=== PATIENT | female | born 1930 | race Caucasian/White ===

== ENCOUNTER 2016-09-29 23:46 | Inpatient (IN) ==
--- NOTE | 2016-09-30 00:05 | Emergency Department Report ---
SOB HPI - General Chief Complaint: Shortness of Breath/Dyspnea Stated Complaint: Dyspnea Time Seen by Provider: 09/30/16 00:02 - History of Present Illness 86-year-old female presents with acute shortness of breath. Patient has a history of amyloidosis and has occasional episodes of hypoxemia. She felt fine yesterday, today however began to feel short of breath this afternoon. The time EMS arrived she was coping for air although her O2 sats were acceptable. She was breathing greater than 40 times per minute, EMS placed her on a nonrebreather and helped her calm down and she slowed her breathing to 28. They were unable to pull her off the nonrebreather and therefore brought her into the ED for evaluation. She has had steroids before and they have helped. - Related Data Home Medications Medication Instructions Recorded Confirmed Ascorbic Acid [Vitamin C] 1,000 mg PO DAILY #0 06/17/14 Fish Oil/Dha/Epa [Fish Oil 1,200 1,200 mg PO DAILY #0 06/17/14 mg Fish Oil] Fluticasone/Salmeterol [Advair 1 puff ORAL INH RTBID #0 08/29/14 500-50 Diskus] Potassium Chloride 20 meq PO DAILY #0 08/29/14 Acetaminophen [Acetaminophen Extra 1,000 mg PO Q8H PRN #0 06/02/15 Strength] Aspirin [Aspirin EC] 81 mg PO DAILY #0 07/22/15 Furosemide 40 mg PO DAILY #0 11/03/15 Multivitamin [Multi-Day Vitamins] 1 tab PO DAILY #0 11/03/15 Albuterol Sulfate 1 vial INH QID PRN #0 05/14/16 Calcium Carbonate [Calcium] 500 mg PO QD #0 06/07/16 Docusate Sodium 1 cap PO DAILY #0 06/07/16 Previous Rx's Medication Instructions Recorded Ferrous Sulfate 324 mg PO BIDWM 30 Days 06/16/16 Ipratropium/Albuterol Sulfate 3 ml AEROSOL RTQID 30 Days 06/16/16 [Iprat-Albut 0.5-3(2.5) mg/3 ml] PredniSONE [Deltasone] 40 mg PO WB 14 Days 06/16/16 Sulfamethoxazole/Trimethoprim 1 tab PO BID 5 Days 06/16/16 [Sulfamethoxazole-Tmp Ss Tablet] dilTIAZem HCl [Diltiazem 12Hr ER] 90 mg PO BID 30 Days 06/16/16 Allergies Allergy/AdvReac Type Severity Reaction Status Date / Time azithromycin Allergy Unknown Rash Verified 09/30/16 04:18 ciprofloxacin Allergy Unknown Rash Unverified 10/03/16 10:44 oxycodone Allergy Unknown Unverified 10/03/16 10:44 Review of Systems All systems: reviewed and negative except as stated Respiratory: Reports: as per HPI Musculoskeletal: Reports: as per HPI Psychiatric: Reports: as per HPI PFSH Patient Stated Medical History Cataracts Yes Other Cardiology Yes: A-FIB Chronic Obstructive Pulmonary Yes Disease (COPD) Other GI Yes: SCARED BOWEL Hx Kidney Stones Yes Other Yes: ONE KIDNEY L Anemia Yes Osteoarthritis Yes Chemotherapy Yes Substance use type: does not use Physical Exam - Normal Exams: Head:: Normocephalic without trauma Chest/Respirations:: Clear all strauss (, surprisingly. No crackles or wheezes are heard despite patient's respiratory distress.) Cardiovascular:: Regular rate and rhythm, without murmur or gallop, Pulses 2+ all extremities, capillary refill, <2 seconds all extremities Abdomen:: Bowel sounds positive, soft, non-tender, non-distended, no hepatosplenomegaly, masses or bruits noted Neurological:: Patient is alert, and oriented, cranial nerves, motor/sensory/ cerebellar, exams w/o gross deficits, to observation Psychiatric:: Patient exhibits, appropriate attention, emotion and affect Course Vital Signs Temperature 98.2 F 09/29/16 23:50 Pulse Rate 100 09/29/16 23:50 Respiratory Rate 28 H 09/29/16 23:50 Blood Pressure 136/74 09/29/16 23:50 Pulse Oximetry 99 09/29/16 23:50 Temperature 96.8 F 10/03/16 07:42 Pulse Rate 105 H 10/03/16 08:00 Respiratory Rate 20 10/03/16 10:13 Blood Pressure 135/69 10/03/16 07:42 Pulse Oximetry 96 10/03/16 10:13 Shortness of Breath/Dyspnea - Lab Data Result diagrams: 10/02/16 04:15 10/02/16 04:15 Lab Results 09/30/16 09/30/16 09/30/16 Range/Units 00:26 00:27 00:27 WBC 12.2 H (4.5-11.0) T/MM3 RBC 2.54 L (4.00-5.20) M/MM3 Hgb 7.1 L (12-16) GM/DL Hct 23.5 L (36-46) % MCV 92.5 (80-100) UM3 MCH 28.0 (26-34) UUG MCHC 30.2 L (31-37) GM/DL RDW Std Deviation 49.9 (36.9-50.2) FL Plt Count 439 H (130-400) T/MM3 MPV 9.8 (9.4-12.4) UM3 Immature Gran % (Auto) 0.2 (0.0-0.5) % Neut % (Auto) 80.8 H (33-66) % Lymph % (Auto) 9.2 L (23-45) % [place] % (Auto) 9.1 H (0-9.0) % Eos % (Auto) 0.4 (0-4) % Baso % (Auto) 0.3 (0-2) % Neut # 9.9 H (1.8-7.7) T/MM3 Lymph # 1.1 (1-4.8) T/MM3 [place] # 1.1 H (0-0.8) T/MM3 Eos # 0.1 (0-0.5) T/MM3 Baso # 0.0 (0-0.2) T/MM3 Abs Immat Gran (auto) 0.03 (0.00-0.03) T/MM3 INR 1.02 (0.99-1.21) D-Dimer 227 (0-230) NG/ML Turbidity 20 (0-20) Sodium 145 H (134-144) MEQ/L Potassium 2.9 L* (3.6-5) MEQ/L Chloride 99 (98-107) MEQ/L Carbon Dioxide 29 (22-30) MEQ/L Anion Gap 17 H (5-15) MEQ/L BUN 37.0 H (7-17) MG/DL Creatinine 2.2 H (0.7-1.2) MG/DL GFR Calculation 21 BUN/Creatinine Ratio 17 (6-26) RATIO Glucose 118 H (65-110) MG/DL Calculated Osmolality 289 H (261-280) MOSM/KG Calcium 8.7 (8.4-10.2) MG/DL Total Bilirubin 0.50 (0.20-1.30) MG/DL Icterus Index 2 (0-7) AST 19 (14-36) U/L ALT 32 (9-52) U/L Alkaline Phosphatase 78 (38-126) U/L Troponin I 0.021 (0-0.12) ng/ml B-Natriuretic Peptide 3010 H (0-175) pg/mL Total Protein 6.2 L (6.3-8.2) G/DL Albumin 3.7 (3.5-5.0) G/DL Globulin 2.5 (2.4-3.6) G/DL Albumin/Globulin Ratio 1.5 (1.1-2.2) RATIO Specimen Hemolysis 15 (0-25) Disposition Clinical Impression: Acute exacerbation of chronic obstructive airways disease [place] [facility] [place] Condition: Improved - Seen By: physician
[2016-09-30] MEDS ORDERED: METHYLPREDNISOLONE SOD SUCC 125mg/2ml INJECTION IVP ONE (00:07)
[2016-09-30] MEDS ORDERED: IPRATROPIUM/ALBUTEROL 2.5mg-0.5mg/3ml NEB IH ONE (00:07)
[2016-09-30] MEDS ORDERED: OXYMETAZOLINE 0.05% NASAL SPRAY 15ml EA NOSTRIL ONE (01:07)
[2016-09-30] MEDS ORDERED: POTASSIUM CHLORIDE INJ 40 MEQ in NS 1,000 ML IV SCH (01:43)
[2016-09-30] MEDS ORDERED: FUROSEMIDE 40 MG TABLET PO ONE (02:36)
--- NOTE | 2016-09-30 03:38 | History & Physical Report ---
History of Present Illness Date: Chief complaint: Dyspnea HPI: Patient is an 86-year-old female who presents to the ER this evening with acute onset of dyspnea and hypoxemia. She was found by EMS responders to be acutely tachypneic, although her oxygen saturation upon EMS arrival at the house was reported to be 100%. She was noted to be breathing 40 times per minute. She was placed on a non-rebreather mask and brought to the ER. She is presently now down to 5 L of nasal cannula oxygen. She has a known history of sarcoidosis, and review of records reveals she was recently discharged from this facility in June of this year with an acute exacerbation of her pulmonary sarcoidosis and COPD. She has been given a breathing treatment tonight, and some steroids. A BNP was 3000, so she was also given Lasix in the ER. She is chronically on oral Lasix at home. A d-dimer was negative. Potassium was slightly depressed as well. It appears that she is chronically on nocturnal oxygen. Shes now being placed under full admission status this morning for treatment of her acute exacerbation of COPD and pulmonary sarcoidosis. Review of Systems All systems: reviewed and no additional remarkable complaints except as stated ( as mentioned in HPI) PFSH Patient Stated Medical History Cataracts Yes Other Cardiology Yes: A-FIB Chronic Obstructive Pulmonary Yes Disease (COPD) Other GI Yes: SCARED BOWEL Hx Kidney Stones Yes Other Yes: ONE KIDNEY L Anemia Yes Osteoarthritis Yes Chemotherapy Yes Family History: Non contributory Smoking status: Never smoker Medications Home Medications Medication Instructions Recorded Confirmed Type Ascorbic Acid [Vitamin C] 1,000 mg PO DAILY #0 06/17/14 History Fish Oil/Dha/Epa [Fish Oil 1,200 1,200 mg PO DAILY #0 06/17/14 History mg Fish Oil] Fluticasone/Salmeterol [Advair 1 puff ORAL INH RTBID #0 08/29/14 History 500-50 Diskus] Potassium Chloride 20 meq PO DAILY #0 08/29/14 History Acetaminophen [Acetaminophen Extra 1,000 mg PO Q8H PRN #0 06/02/15 History Strength] Aspirin [Aspirin EC] 81 mg PO DAILY #0 07/22/15 History Furosemide 40 mg PO DAILY #0 11/03/15 History Multivitamin [Multi-Day Vitamins] 1 tab PO DAILY #0 11/03/15 History Albuterol Sulfate 1 vial INH QID PRN #0 05/14/16 History Calcium Carbonate [Calcium] 500 mg PO QD #0 06/07/16 History Docusate Sodium 1 cap PO DAILY #0 06/07/16 History Allergies Allergy/AdvReac Type Severity Reaction Status Date / Time azithromycin Allergy Unknown Verified 09/30/16 00:00 ciprofloxacin Allergy Unknown Unverified 09/30/16 00:00 oxycodone Allergy Unknown Unverified 09/30/16 00:00 oxycodone HCl AdvReac Unknown Uncoded 09/30/16 00:00 Oxycodone Terephthalate AdvReac Unknown Uncoded 09/30/16 00:00 Exam Vital Signs: Temp Pulse Resp BP Pulse Ox 98.2 F 91 28 H 136/74 99 09/29/16 23:50 09/30/16 00:19 09/29/16 23:50 09/29/16 23:50 09/29/16 23:50 Height: 1.68 m Weight: 71 kg - Constitutional Present: mild distress, obese - Routine HEENT Exam Head: Present: normocephalic, atraumatic - Routine Neck Exam Present: supple - Routine Respiratory Exam Present: rhonchi - Routine Cardiovascular Exam Present: RRR, S1, S2 - Routine Abdominal Exam Present: soft, non tender - Routine Extremities Exam Absent: edema - Routine Neurological Exam Present: alert, oriented X3 Results - Labs CBC & Chem 7: 09/30/16 00:27 09/30/16 00:27 Labs: Short CBC 09/30/16 Range/Units 00:27 WBC 12.2 H (4.5-11.0) T/MM3 Hgb 7.1 L (12-16) GM/DL Hct 23.5 L (36-46) % Plt Count 439 H (130-400) T/MM3 BMP 09/30/16 00:27 Sodium 145 H Potassium 2.9 L* Chloride 99 Carbon Dioxide 29 BUN 37.0 H Creatinine 2.2 H Glucose 118 H Calcium 8.7 Cardiac Enzymes 09/30/16 Range/Units 00:27 Troponin I 0.021 (0-0.12) ng/ml Liver Function 09/30/16 Range/Units 00:27 Total Bilirubin 0.50 (0.20-1.30) MG/DL AST 19 (14-36) U/L ALT 32 (9-52) U/L Alkaline Phosphatase 78 (38-126) U/L Albumin 3.7 (3.5-5.0) G/DL Assessment and Plan DVT Prophylaxis: SCD's Assessment and Plan: Assessment 1. Acute hypoxemic respiratory failure in the setting of chronic pulmonary Sarcoidosis and COPD with presumptive acute exacerbation-present on admit 2. Chronic kidney disease stage IV-at apparent baseline 3. Paroxysmal atrial fibrillation with presently controlled ventricular rate 4. 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 Will wean oxygen as tolerated. Plan to continue systemic IV corticosteroids, and nebulized bronchodilator therapy. I will initiate oral doxycycline for antibiotic coverage. Plan to continue home diuretics, and will need to replace potassium. Follow up labs will be ordered for noon today. Plan to continue other home medications, after reconciliation is complete. SCDs for DVT prophylaxis. Sepsis Assessment - Focused Exam Vital Signs Temp Pulse Resp BP Pulse Ox 09/30/16 00:19 91 09/29/16 23:50 98.2 F 100 28 H 136/74 99 Hospital Course Summary Disclaimer: The visit summary below is not to be considered part of the above Progress Note.
[2016-09-30] MEDS ORDERED: ALBUTEROL 2.5mg/3ml (0.083%) NEB IH PRN (04:10)
[2016-09-30] MEDS ORDERED: ACETAMINOPHEN 325 MG TABLET PO PRN (04:10)
[2016-09-30] MEDS: CALCIUM CARBONATE 500 MG TABLET PO SCH (05:53)
[2016-09-30] MEDS ORDERED: FERROUS SULFATE 324 MG TABLET PO SCH (08:00)
--- NOTE | 2016-09-30 08:07 | XRay Report ---
INDICATION: acute shortness of breath PROCEDURE: CHEST 2-VIEWS UPRIGHT (PA & LAT) Encounter: Initial COMPARISON: June 14, 2016 FINDINGS: Decreasing small pleural effusions with improved aeration of the right lower lobe. Upper lung strauss are stable and grossly clear. No pneumothorax. Heart size and mediastinal contours are stable. Pulmonary vascularity is mildly congested. Impression: Slight improvement in congestive failure with mild to moderate CHF remaining. .
[2016-09-30] MEDS: IPRATROPIUM/ALBUTEROL 2.5mg-0.5mg/3ml NEB AEROSOL SCH ×4 (08:10→20:10)
[2016-09-30] MEDS: ASCORBIC ACID 500 MG TABLET PO SCH (09:35)
[2016-09-30] MEDS: MULTI-VITAMIN PLAIN TABLET PO SCH (09:35)
[2016-09-30] MEDS: METHYLPREDNISOLONE SOD SUCC 125mg/2ml INJECTION IVP SCH ×4 (09:44→21:01)
[2016-09-30] MEDS: SALMETEROL ORAL INH SCH ×2 (10:52→11:55)
[2016-09-30] MEDS: FLUTICASONE ORAL INH SCH ×2 (10:52→11:55)
[2016-09-30] MEDS: DiltiaZEM SR 90 MG CAPSULE PO SCH ×2 (11:14→20:59)
[2016-09-30] MEDS: FUROSEMIDE 40 MG TABLET PO SCH (11:15)
[2016-09-30] MEDS: ASPIRIN *EC* 81 MG TABLET PO SCH (11:15)
[2016-09-30] MEDS: OMEGA-3 ACID ESTERS 1 GM CAPSULE PO SCH (11:15)
[2016-09-30] MEDS: DOCUSATE SODIUM 100 MG CAPSULE PO SCH (11:15)
[2016-09-30] MEDS: FERROUS SULFATE 324 MG TABLET PO SCH ×2 (14:21→21:00)
[2016-10-01] MEDS: METHYLPREDNISOLONE SOD SUCC 125mg/2ml INJECTION IVP SCH ×4 (03:41→21:29)
[2016-10-01] MEDS: CALCIUM CARBONATE 500 MG TABLET PO SCH (03:42)
[2016-10-01] MEDS: IPRATROPIUM/ALBUTEROL 2.5mg-0.5mg/3ml NEB AEROSOL SCH ×4 (07:20→20:11)
[2016-10-01] MEDS: FUROSEMIDE 40 MG TABLET PO SCH (08:40)
[2016-10-01] MEDS: ASPIRIN *EC* 81 MG TABLET PO SCH (08:40)
[2016-10-01] MEDS: DiltiaZEM SR 90 MG CAPSULE PO SCH ×2 (08:40→20:55)
[2016-10-01] MEDS: ASCORBIC ACID 500 MG TABLET PO SCH (08:41)
[2016-10-01] MEDS: DOCUSATE SODIUM 100 MG CAPSULE PO SCH (08:41)
[2016-10-01] MEDS: MULTI-VITAMIN PLAIN TABLET PO SCH (08:41)
[2016-10-01] MEDS: OMEGA-3 ACID ESTERS 1 GM CAPSULE PO SCH (08:41)
[2016-10-01] MEDS ORDERED: PRAMIPEXOLE 0.25 MG TABLET PO SCH (10:00)
[2016-10-01] MEDS: FERROUS SULFATE 324 MG TABLET PO SCH ×2 (11:24→20:55)
[2016-10-01] MEDS: FLUTICASONE ORAL INH SCH ×5 (11:35→20:12)
[2016-10-01] MEDS: SALMETEROL ORAL INH SCH ×5 (11:35→20:12)
--- NOTE | 2016-10-01 12:27 | Progress Note ---
Subjective: Pt states she is not feeling good. States she can not breathe well. It appears that this is in part due to stuffy nose. She is requesting Afrin. Also she states she has RLS and could not sleep last night. Otherwise still appears to be SOB and is on O2 by NC. Pt sates she is miserable as she has not been able to breathe well for a long time. I discussed her code status and pt is a DNR/DNI Objective Vital signs: Temp Pulse Resp BP Pulse Ox 96.8 F 110 H 30 H 154/72 H 94 10/01/16 07:44 10/01/16 08:00 10/01/16 11:33 10/01/16 07:44 10/01/16 07:44 Rhythm: Normal Sinus Rhythm Weight: 69.6 kg - Constitutional Present: mild distress, moderate distress, obese Comments: Mild to moderate respiratory distress. - Routine HEENT Exam Head: Present: normocephalic Eye: Present: EOMI, PERRL ENT: Present: mucous membranes moist - Routine Respiratory Exam Present: decreased breath sounds - Routine Cardiovascular Exam Present: RRR - Routine Abdominal Exam Present: soft, non distended - Routine Extremities Exam Absent: cyanosis, clubbing, edema - Routine Skin Exam Present: intact - Routine Neurological Exam Present: alert, oriented X3 - Routine Lymphatic Exam Lymphatic: Absent: adenopathy - Routine Psychiatric Exam Present: normal affect Results - Labs CBC & Chem 7: 10/01/16 08:51 10/01/16 08:51 Labs: Short CBC 09/30/16 10/01/16 Range/Units 12:05 08:51 WBC 10.0 25.7 H* D (4.5-11.0) T/MM3 Hgb 7.0 L 10.1 L D (12-16) GM/DL Hct 23.9 L 32.4 L D (36-46) % Plt Count 429 H 434 H (130-400) T/MM3 BMP 09/30/16 10/01/16 12:05 08:51 Sodium 144 145 H Potassium 3.9 4.2 Chloride 100 101 Carbon Dioxide 29 31 H BUN 38.0 H 45.0 H Creatinine 2.1 H 2.1 H Glucose 207 H 168 H Calcium 9.3 10.3 H D Liver Function 10/01/16 Range/Units 08:51 Total Bilirubin 0.70 (0.20-1.30) MG/DL AST 32 D (14-36) U/L ALT 35 (9-52) U/L Alkaline Phosphatase 60 (38-126) U/L Albumin 3.9 (3.5-5.0) G/DL Assessment and Plan Assessment and Plan: Assessment 1. Acute anemia with, dyspnea, tachypnea and tachycardia (despite being on negative inotropes) with high output CHF on admission - due to the same and renal failure (probably acute and anemia related). - Dyspnea is still present. Will check Pro-BNP stat, ABG. and cultures since pt WBC suddenly jumped up. -If CXR/BNP/ABG do not point to pulmonary congestion - may consider fluids. - Pt was given 2U of PRBC yesterday. - Hemoglobin went up excessively for the ammount of blood she received. - Admission H/H = today's H/H = 10.1/32.4 - correction management of this patient would include ideally repleting her iron stores with IV iron since she can not take it PO. - She has A fib and is on ASA for prevention of CVA, which of course will keep her bleeding. - Unknown when was her last Colonoscopy - may need to be reassesed since bleeding could be from proctitis + something else. 2. Sarcoidosis - - Check HRCT chest as pt could have significant burden on her lungs explaining her dyspnea. - Will give an initial dose of IV streroids to cover if Sarcoid is the culprit and/or COPD AE. 2. Paroxysmal atrial fibrillation with presently rate in the high 90's and low 100's. 3. Tachypnea - multifactorial, due to anemia/sarcoid/ILD/COPD and possibly with CHF superimposed. . Sepsis Assessment - Evaluation Sepsis screening result: Sepsis Risk - Focused Exam Vital Signs Temp Pulse Resp BP Pulse Ox 10/01/16 11:33 30 H 10/01/16 08:00 110 H 10/01/16 07:44 96.8 F 111 H 28 H 154/72 H 94 10/01/16 07:22 36 H 92 Respiratory exam: Present: rhonchi Cardiovascular exam: Present: RRR, S1, S2 Capillary refill: < 2-3 Seconds Hospital Course Summary Disclaimer: The visit summary below is not to be considered part of the above Progress Note.
[2016-10-01] MEDS: CEFTRIAXONE 1 G in NS 100 ML IV SCH (15:23)
[2016-10-01] MEDS: METHYLPREDNISOLONE SOD SUCC 40mg/ml INJECTION IVP SCH ×2 (15:23→20:54)
[2016-10-01] MEDS: PRAMIPEXOLE 0.25 MG TABLET PO SCH ×2 (15:54→21:00)
[2016-10-01] MEDS: LR 1,000 ML IV SCH (17:49)
[2016-10-01] MEDS ORDERED: [UNRECOGNIZED DRUG - OTHER] MM PRN (18:31)
[2016-10-01] MEDS: acetaZOLAMIDE 250 MG TABLET PO SCH (21:00)
[2016-10-01] MEDS: DOXYCYCLINE 100 MG in NS 250ml 250 ML IV SCH (21:29)
[2016-10-02] MEDS: METHYLPREDNISOLONE SOD SUCC 125mg/2ml INJECTION IVP SCH (03:20)
[2016-10-02] MEDS: METHYLPREDNISOLONE SOD SUCC 40mg/ml INJECTION IVP SCH ×4 (03:20→22:50)
[2016-10-02] MEDS: CALCIUM CARBONATE 500 MG TABLET PO SCH (03:21)
[2016-10-02] MEDS: LR 1,000 ML IV SCH ×2 (03:21→13:24)
[2016-10-02] MEDS: IPRATROPIUM/ALBUTEROL 2.5mg-0.5mg/3ml NEB AEROSOL SCH ×4 (08:04→20:46)
[2016-10-02] MEDS: ASCORBIC ACID 500 MG TABLET PO SCH (08:45)
[2016-10-02] MEDS: acetaZOLAMIDE 250 MG TABLET PO SCH ×2 (08:45→22:49)
[2016-10-02] MEDS: ASPIRIN *EC* 81 MG TABLET PO SCH (08:46)
[2016-10-02] MEDS: OMEGA-3 ACID ESTERS 1 GM CAPSULE PO SCH (08:46)
[2016-10-02] MEDS: DOCUSATE SODIUM 100 MG CAPSULE PO SCH (08:46)
[2016-10-02] MEDS: PRAMIPEXOLE 0.25 MG TABLET PO SCH ×4 (08:46→22:50)
[2016-10-02] MEDS: DiltiaZEM SR 90 MG CAPSULE PO SCH ×2 (08:46→22:49)
[2016-10-02] MEDS: MULTI-VITAMIN PLAIN TABLET PO SCH (08:46)
[2016-10-02] MEDS: DOXYCYCLINE 100 MG in NS 250ml 250 ML IV SCH ×2 (09:18→21:45)
[2016-10-02] MEDS: HEPARIN SUB-Q 5,000 UNITS/0.5 ML INJECTION SQ SCH ×2 (10:53→21:52)
[2016-10-02] MEDS: PANTOPRAZOLE 40 MG INJECTION IVP SCH (10:54)
[2016-10-02] MEDS: SALMETEROL ORAL INH SCH ×3 (11:06→20:47)
[2016-10-02] MEDS: FLUTICASONE ORAL INH SCH ×3 (11:06→20:47)
[2016-10-02] MEDS: FERROUS SULFATE 324 MG TABLET PO SCH (12:14)
[2016-10-02] MEDS ORDERED: ONDANSETRON 4 MG/2 ML INJECTION IVP ONE (13:05)
--- NOTE | 2016-10-02 13:22 | Progress Note ---
Subjective: Pt states she is feeling somehow better today, still has SOB and is coughing quite a bit. Tolerating so far breathing treatments. She is afebrile. Objective Vital signs: Temp Pulse Resp BP Pulse Ox 98.1 F 95 32 H 128/76 95 10/02/16 07:44 10/02/16 08:00 10/02/16 11:06 10/02/16 07:44 10/02/16 08:05 Rhythm: Normal Sinus Rhythm Weight: 69.4 kg - Constitutional Present: mild distress, moderate distress, obese - Routine HEENT Exam Head: Present: normocephalic, atraumatic Eye: Present: EOMI, PERRL - Routine Respiratory Exam Present: accessory muscle use, respiratory distress, distant breath sounds - Routine Cardiovascular Exam Present: RRR - Routine Abdominal Exam Present: soft, non distended, non tender - Routine Extremities Exam Absent: cyanosis, clubbing, edema - Routine Neurological Exam Present: alert, oriented X3 - Routine Lymphatic Exam Lymphatic: Absent: adenopathy Results - Labs CBC & Chem 7: 10/02/16 04:15 10/02/16 04:15 Labs: Short CBC 10/01/16 10/02/16 Range/Units 13:50 04:15 WBC 28.8 H* 28.4 H* (4.5-11.0) T/MM3 Hgb 9.9 L 9.7 L (12-16) GM/DL Hct 31.9 L 32.6 L (36-46) % Plt Count 468 H 462 H (130-400) T/MM3 BMP 10/02/16 04:15 Sodium 145 H Potassium 4.6 Chloride 101 Carbon Dioxide 32 H BUN 49.0 H Creatinine 2.4 H D Glucose 165 H Calcium 10.4 H Liver Function 10/02/16 Range/Units 04:15 Total Bilirubin 0.40 (0.20-1.30) MG/DL AST 35 (14-36) U/L ALT 40 (9-52) U/L Alkaline Phosphatase 57 (38-126) U/L Albumin 3.8 (3.5-5.0) G/DL Urine 10/01/16 Range/Units 14:37 Urine Color Yellow (YELLOW) Urine Clarity Clear Urine pH 5.5 (5.0-8.0) Ur Specific [place] 1.010 L (1.015-1.025) Urine Protein Negative (NEGATIVE) Urine Glucose (UA) Negative (NEGATIVE) - ABG Interpretation ABG results: 10/01/16 16:50 ABG pH 7.520 H ABG pCO2 42 ABG pO2 62 L ABG HCO3 34 H ABG Total CO2 35.6 H ABG O2 Saturation 94.0 L ABG Base Excess 10.4 H Assessment and Plan Assessment and Plan: Assessment A. Acute anemia with, dyspnea, tachypnea and tachycardia, on admission - S/P 2 Units of PRBC given on day # 1 of admission - Admission H.H - 6.7/22.8 (09/30) H.H today 9.7/32.6 (10/02) - Pt was given 2U of PRBC (09/30) - Hemoglobin went up excessively for the ammount of blood she received, pointing to hemo-concentration. 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 B. COPD AE- Dyspnea - SOB - pulmonary HTN, previous H.O Sarcoidosis, Bilateral pleural effussions ? of NEW PNA ? - HRCT CHEST - (10/02 - Edited) "................................... 1) Extensive calcified bilateral hilar and mediastinal lymphadenopathy 2) Large right and moderate Left pleural effussions 3) Prominent pulmonary arteries, possibly related to pulmonary hypertension 4) Mild new groundglass opacity suggestive of mild pneumonitis, in the RUL. Patchy density C/W atelectasis or pna in the inferior aspect RLL and RML, and lingula. 5) Bilateral pulmonary nodules are smaller favoring a "Benign etiology" ( compared with previous exam) 6) Kidney cyst - possibly benign. ...................................." - BNP went up after transfussion. - Rocephin and Doxy (DAY # 2) - Procalcitonin - LOW (6/3) - ABG (6/3) suggests hypoxemia and metabolic alkalosis (Has metabolic alkalosis with partial respiratory compensation) - Diamox added (6/3) - Pt urinary pH is actually a bit acidic. Pt was taking some Calcium carbonate - could have a component of milk-alkali superimposed. - May need U/S guided thoracenthesis - decubitus films ordered. Discussed this with pt and she would agree to U/S guided thoracenthesis. C. Paroxysmal atrial fibrillation with presently rate in the high 90's and low 100's. - She has A fib and is on ASA for prevention of CVA, which of course will keep her bleeding. D. PT IS DNR. = Sepsis Assessment - Evaluation Sepsis screening result: Sepsis Risk - Focused Exam Vital Signs Temp Pulse Resp BP Pulse Ox 10/02/16 11:06 32 H 10/02/16 08:05 28 H 95 10/02/16 08:00 95 10/02/16 07:44 98.1 F 108 H 34 H 128/76 93 Respiratory exam: Present: rhonchi Cardiovascular exam: Present: RRR, S1, S2 Capillary refill: < 2-3 Seconds Hospital Course Summary Disclaimer: The visit summary below is not to be considered part of the above Progress Note.
[2016-10-02] MEDS: CEFTRIAXONE 1 G in NS 100 ML IV SCH (14:30)
[2016-10-02] MEDS: SALINE FLUSH 10ml SYRINGE IVF PRN ×2 (17:22→19:02)
[2016-10-02] MEDS ORDERED: FUROSEMIDE 20 MG/2 ML INJECTION IVP ONE (18:48)
[2016-10-02] MEDS ORDERED: MORPHINE SULFATE 5 MG/ML SYRINGE INJ PRN (19:55)
[2016-10-03] MEDS: METHYLPREDNISOLONE SOD SUCC 40mg/ml INJECTION IVP SCH ×2 (03:47→08:10)
[2016-10-03] MEDS: MORPHINE SULFATE 2 MG SYRINGE IVP PRN ×3 (03:56→21:19)
[2016-10-03] MEDS: IPRATROPIUM/ALBUTEROL 2.5mg-0.5mg/3ml NEB AEROSOL SCH ×4 (06:40→21:00)
--- NOTE | 2016-10-03 07:10 | CT Scan Report ---
EXAM: CT chest wo con LOCATION OF DICTATION: [facility] HISTORY: Dyspnea - sarcoidosis COMPARISON: Compared to the CT angiogram dated 09/05/2014 TECHNIQUE: Multiple contiguous axial images were obtained of the chest without contrast. Coronal and sagittal reformatted images were utilized. Automated Exposure Control and Iterative Reconstruction dose reducing techniques were utilized. FINDINGS: Lymph nodes: There are numerous calcified granulomas demonstrated within the mediastinum and bilateral hilar regions. Pleura: There are moderate to large bilateral pleural effusions with subjacent atelectasis demonstrated. Cardiovascular: The heart is moderately enlarged. There is no pericardial effusion. Moderate calcific atherosclerotic disease of the thoracic aorta. Lungs: The lungs are normal. There are new patchy groundglass opacities demonstrated within the right upper lobe and interval decrease in groundglass opacities within the remaining portions of the lungs. Left perihilar nodular densities have decreased prominence when compared to the previous study measuring up to 1.4 x 0.8 cm in maximum dimensions. Less prominent right-sided pulmonary nodules. There is respiratory motion artifact demonstrated. Slight interval increase in patchy more consolidating densities within the inferior right lower lobe and lingula and right middle lobe are slightly increased. There is no pneumothorax. Upper Abdomen: Stable visualized upper abdominal viscera with slight decrease in size of left renal cyst with peripheral calcifications. Bones: There is moderate spondylosis of the thoracolumbar spine. No suspicious or destructive osseous lesions. IMPRESSION: 1. Extensive calcified hilar and mediastinal granulomas compatible with patient's reported history of sarcoidosis/ granulomatous disease. 2. Large bilateral pleural effusions slightly greater on the right with subjacent atelectasis is similar to the previous study. 3. The pulmonary arteries remain prominent which could be seen with pulmonary hypertension. 4. New groundglass opacities demonstrated within the right upper lobe. Patchy densities within the inferior right upper lobe, right middle lobe, and lingula are slightly increased and may reflect areas of atelectasis or inflammatory/infectious infiltrates. Follow-up is recommended 4. Slight decrease in size of bilateral pulmonary nodules. 5. Stable to slight decrease in size of left renal cyst. .
[2016-10-03] MEDS: PANTOPRAZOLE 40 MG INJECTION IVP SCH (08:11)
[2016-10-03] MEDS: HEPARIN SUB-Q 5,000 UNITS/0.5 ML INJECTION SQ SCH (08:11)
[2016-10-03] MEDS: DOXYCYCLINE 100 MG in NS 250ml 250 ML IV SCH (08:20)
--- NOTE | 2016-10-03 08:20 | XRay Report ---
LOCATION OF DICTATION: [facility] EXAM: XR AP and lateral chest w bilateral decubitus views for a total of four views. HISTORY: Bilateral pleural effussions R>L COMPARISON: September 30, 2016 FINDINGS: The heart borders are partially obscured though appear to be upper limits normal in size. There is also mild prominence of the central bronchovascular markings. Moderate size bilateral pleural effusions are stable to slightly increased from one day earlier. There is bibasilar atelectasis/scarring or infiltrates suggested. There is no evidence for pneumothorax. IMPRESSION: 1. Moderate-sized bilateral pleural effusions with subjacent atelectasis/scarring or infiltrates. The effusions are stable to slightly increased from one day earlier and continued follow-up is recommended. 2. Heart size is upper limits normal. Slight prominence of the central bronchovascular markings. Cannot exclude underlying pulmonary vascular congestion. .
[2016-10-03] MEDS ORDERED: IPRATROPIUM/ALBUTEROL 2.5mg-0.5mg/3ml NEB AEROSOL PRN (08:58)
[2016-10-03] MEDS: PRAMIPEXOLE 0.25 MG TABLET PO SCH ×2 (09:03→16:54)
[2016-10-03] MEDS: DOCUSATE SODIUM 100 MG CAPSULE PO SCH (09:03)
[2016-10-03] MEDS: DiltiaZEM SR 90 MG CAPSULE PO SCH (09:03)
[2016-10-03] MEDS: acetaZOLAMIDE 250 MG TABLET PO SCH (09:04)
[2016-10-03] MEDS: ASPIRIN *EC* 81 MG TABLET PO SCH (09:04)
[2016-10-03] MEDS: OMEGA-3 ACID ESTERS 1 GM CAPSULE PO SCH (09:04)
[2016-10-03] MEDS: MULTI-VITAMIN PLAIN TABLET PO SCH (09:05)
[2016-10-03] MEDS: ASCORBIC ACID 500 MG TABLET PO SCH (09:05)
--- NOTE | 2016-10-03 09:20 | Progress Note ---
Subjective: Kim was sleeping - her daughter (an RN and DPOA) reports that she just recently received some morphine, so is sleeping. Daughter confirmed that they would like to proceed with comfort measures and hospice. We reviewed lab work, imaging, and prognosis. Together, we went through her medications, and discontinued the nonpertinent medications and oral pills. A Vazquez was inserted yesterday and this was helpful. They have decided on D[facility] and a nurse has already been contacted. <Korin Larios 10/03/16 09:30> Objective Vital signs: Temp Pulse Resp BP Pulse Ox 96.8 F 105 H 20 135/69 96 10/03/16 07:42 10/03/16 08:00 10/03/16 10:13 10/03/16 07:42 10/03/16 10:13 <Carlos Chavez 10/03/16 14:39> Temp Pulse Resp BP Pulse Ox 96.8 F 111 H 24 135/69 94 10/03/16 07:42 10/03/16 07:42 10/03/16 07:42 10/03/16 07:42 10/03/16 07:42 <Korin Larios 10/03/16 09:30> Weight: 70 kg <Korin Larios 10/03/16 09:30> - Constitutional Present: moderate distress, well nourished, well developed, somnolent <Korin Larios 10/03/16 09:30> - Routine HEENT Exam Head: Present: normocephalic <Korin Larios 10/03/16 09:30> - Routine Respiratory Exam Present: wheezes <Korin Larios 10/03/16 09:30> - Routine Cardiovascular Exam Present: irregularly irregular <Korin Larios 10/03/16 09:30> - Routine Abdominal Exam Present: soft <Korin Larios 10/03/16 09:30> - Routine Extremities Exam Present: edema, pulses intact, normal capillary refill <Korin Larios 10/03 09:30> - Routine Skin Exam Present: pallor <Korin Larios 10/03/16 09:30> Results - Labs CBC & Chem 7: 10/02/16 04:15 10/02/16 04:15 <Carlos Chavez - 10/03/16 14:39> - ABG Interpretation ABG results: 10/01/16 10/02/16 10/02/16 16:50 17:11 18:30 ABG pH 7.520 H 7.350 7.372 ABG pCO2 42 60 H* 48 H ABG pO2 62 L 92 86 ABG HCO3 34 H 33 H 28 H ABG Total CO2 35.6 H 34.9 H 29 H ABG O2 Saturation 94.0 L 97.0 96.0 ABG Base Excess 10.4 H 5.8 H 2.0 <Carlos Chavez - 10/03/16 14:39> 10/01/16 10/02/16 10/02/16 16:50 17:11 18:30 ABG pH 7.520 H 7.350 7.372 ABG pCO2 42 60 H* 48 H ABG pO2 62 L 92 86 ABG HCO3 34 H 33 H 28 H ABG Total CO2 35.6 H 34.9 H 29 H ABG O2 Saturation 94.0 L 97.0 96.0 ABG Base Excess 10.4 H 5.8 H 2.0 <Korin Larios - 10/03/16 09:30> Assessment and Plan Assessment and Plan: Have independently interviewed and examined pt. Chart reviewed. Case discussed with CRESENCIO and my FLOOR GRINDER. Care plan developed with my supervision; agree with above. Resting in bed, not interactive. Family at bedside-reports comfort level being controlled well with MS. Does get restless and has air hunger at times. Not alert enough to attempt oral intake. Lungs: decreased, coarse, diffuse wheezes. CV: tachy, regular AB: soft nd, BS decreased MSE: somnolent. Plan: Continue with comfort measures. [facility] hospice recommending outpatient hospice care - CRESENCIO working on arrangements at . Time spent with patient care 25 minutes. <Carlos Chavez - 10/03/16 14:39> Assessment & Plan COPD with Pulmonary HTN, Sarcoid hx; B/L pleural effusions; acute anemia -intolerant of BiPAP - induces panic attack -PCO2 rising; WBC increasing despite treatment -JESUS with creatinine up to 2.4 (baseline in mid 1's); still making urine - Vazquez placed for comfort and significant dyspnea with activity -Comfort care per patient and family wishes - DC abx, DC PO meds, cont IV morphine, ativan for air hunger and anxiety -Family declines thoracentesis -Per dtr, it is more important to keep symptoms at bay, even if it means she sleeps consistently -Donaldo Yu RN will be here at 0945. I'm concerned she wouldn't survive transfer home, and if she did, I am uncertain that her symptoms would be well- managed. -Discussed with Dr. Chavez. <Korin Larios 10/03/16 09:30> Sepsis Assessment - Evaluation Sepsis screening result: Sepsis Risk <Korin Larios 10/03/16 09:30> - Focused Exam Vital Signs Temp Pulse Resp BP Pulse Ox 10/03/16 10:13 20 96 10/03/16 08:00 105 H 10/03/16 07:42 96.8 F 111 H 24 135/69 94 10/03/16 06:40 20 92 <Carlos Chavez 10/03/16 14:39> Vital Signs Temp Pulse Resp BP Pulse Ox 10/03/16 07:42 96.8 F 111 H 24 135/69 94 10/03/16 06:40 20 92 10/03/16 00:00 98.2 F 101 H 22 148/65 H 92 10/02/16 23:14 95 10/02/16 23:00 98 <Korin Larios 10/03/16 09:30> Respiratory exam: Present: rhonchi <Korin Larios 10/03/16 09:30> Cardiovascular exam: Present: RRR, S1, S2 <Korin Larios 10/03/16 09:30> Capillary refill: < 2-3 Seconds <Korin Larios 10/03/16 09:30> Hospital Course Summary Disclaimer: The visit summary below is not to be considered part of the above Progress Note. <Carlos Chavez 10/03/16 14:39> The visit summary below is not to be considered part of the above Progress Note. <Korin Larios 10/03/16 09:30> Hospital Course: 10/03/16 09:24 Assessment A. Acute anemia with, dyspnea, tachypnea and tachycardia, on admission - S/P 2 Units of PRBC given on day # 1 of admission - Admission H.H - 6.7/22.8 (6/2) H.H today 9.7/32.6 (/4) - Pt was given 2U of PRBC (/2) - Hemoglobin went up excessively for the ammount of blood she received, pointing to hemo-concentration. 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 B. COPD AE- Dyspnea - SOB - pulmonary HTN, previous H.O Sarcoidosis, Bilateral pleural effussions ? of NEW PNA ? - HRCT CHEST - (/ - Edited) "................................... 1) Extensive calcified bilateral hilar and mediastinal lymphadenopathy 2) Large right and moderate Left pleural effussions 3) Prominent pulmonary arteries, possibly related to pulmonary hypertension 4) Mild new groundglass opacity suggestive of mild pneumonitis, in the RUL. Patchy density C/W atelectasis or pna in the inferior aspect RLL and RML, and lingula. 5) Bilateral pulmonary nodules are smaller favoring a "Benign etiology" ( compared with previous exam) 6) Kidney cyst - possibly benign. ...................................." - BNP went up after transfussion. - Rocephin and Doxy (DAY # 2) - Procalcitonin - LOW (6/3) - ABG (6/3) suggests hypoxemia and metabolic alkalosis (Has metabolic alkalosis with partial respiratory compensation) - Diamox added (6/3) - Pt urinary pH is actually a bit acidic. Pt was taking some Calcium carbonate - could have a component of milk-alkali superimposed. - May need U/S guided thoracenthesis - decubitus films ordered. Discussed this with pt and she would agree to U/S guided thoracenthesis. C. Paroxysmal atrial fibrillation with presently rate in the high 90's and low 100's. - She has A fib and is on ASA for prevention of CVA, which of course will keep her bleeding. COPD with Pulmonary HTN, Sarcoid hx; B/L pleural effusions; acute anemia -intolerant of BiPAP - induces panic attack -PCO2 rising; WBC increasing despite treatment -JESUS with creatinine up to 2.4 (baseline in mid 1's); still making urine - Vazquez placed for comfort and significant dyspnea with activity -Comfort care per patient and family wishes - DC abx, DC PO meds, cont IV morphine, ativan for air hunger and anxiety -Family declines thoracentesis -Per dtr, it is more important to keep symptoms at bay, even if it means she sleeps consistently -Donaldo Yu RN will be here at 0945. I'm concerned she wouldn't survive transfer home, and if she did, I am uncertain that her symptoms would be well- managed. 10/03/16 09:29 <Korin Larios - 10/03/16 09:30>
[2016-10-03] MEDS ORDERED: PRAMIPEXOLE 0.25 MG TABLET PO SCH (21:00)
[2016-10-04] MEDS: IPRATROPIUM/ALBUTEROL 2.5mg-0.5mg/3ml NEB AEROSOL SCH ×4 (07:18→21:45)
[2016-10-04] MEDS: SALINE FLUSH 10ml SYRINGE IVF PRN ×3 (09:50→14:09)
[2016-10-04] MEDS: PANTOPRAZOLE 40 MG INJECTION IVP SCH (09:50)
[2016-10-04] MEDS: MORPHINE SULFATE 2 MG SYRINGE IVP PRN ×2 (13:44→19:46)
--- NOTE | 2016-10-04 15:12 | Progress Note ---
Subjective: F/U: Acute on chronic respiratory failure. Resting in bed. Arouses to verbal stimuli, but not able to engage in conversation. SOA continues-does require frequent MS/Ativan and neb treatments to help. Oral drive decreased-will take in small bites at times. Objective Vital signs: Temp Pulse Resp BP Pulse Ox 97.3 F 104 H 28 H 127/70 97 10/04/16 07:13 10/04/16 07:13 10/04/16 11:40 10/04/16 07:13 10/04/16 11:40 Weight: 71.214 kg - Constitutional Present: mild distress, well nourished, well developed, somnolent, other ( Appear tires and weak. ) - Routine HEENT Exam Head: Present: normocephalic, atraumatic Eye: Present: EOMI, PERRL ENT: Present: mucous membranes moist, nares patent - Routine Respiratory Exam Present: accessory muscle use, decreased breath sounds (Less coarse than yesterday, but less air movement.), prolonged expiratory phase, respiratory distress - Routine Cardiovascular Exam Present: irregular rhythm, irregularly irregular - Routine Abdominal Exam Present: soft, non distended. Absent: normoactive bowel sounds (decreased bowel sounds.) - Routine Extremities Exam Present: edema (+1 upper and lower), pulses intact. Absent: cyanosis - Routine Skin Exam Present: intact, warm. Absent: pallor, mottling - Routine Neurological Exam Present: CN II-XII intact - Routine Psychiatric Exam Absent: normal thought process (Somnolent ) Comments: Somnolent. Will arouse to verbal stimuli, but not able to engage in conversation. 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 Current visit: Yes Status: Acute (8) Pleural effusion Current visit: Yes Status: Acute DVT Prophylaxis: SCD's Resuscitation Status: Do Not Resuscitate Assessment and Plan: Continue with comfort measures-MS/Ativan to help air hunger. Neb treatment to help decrease pulmonary reactivity. Continue with supplemental O2. CM working on discharge care arrangements - anticipate initiation of [facility] at discharge. Case discussed with CM. Sepsis Assessment - Evaluation Sepsis screening result: Sepsis Risk - Focused Exam Vital Signs Temp Pulse Resp BP Pulse Ox 10/04/16 11:40 28 H 97 10/04/16 07:13 97.3 F 104 H 24 127/70 99 10/04/16 07:10 26 H 97 Respiratory exam: Present: rhonchi Cardiovascular exam: Present: RRR, S1, S2 Capillary refill: < 2-3 Seconds Hospital Course Summary Disclaimer: The visit summary below is not to be considered part of the above Progress Note. Hospital Course: 09/30 Admission Assessment 1. Acute hypoxemic respiratory failure in the setting of chronic pulmonary Sarcoidosis and COPD with presumptive acute exacerbation-present on admit 2. Chronic kidney disease stage IV-at apparent baseline 3. Paroxysmal atrial fibrillation with presently controlled ventricular rate 4. 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 Will wean oxygen as tolerated. Plan to continue systemic IV corticosteroids, and nebulized bronchodilator therapy. I will initiate oral doxycycline for antibiotic coverage. Plan to continue home diuretics, and will need to replace potassium. Follow up labs will be ordered for noon today. Plan to continue other home medications, after reconciliation is complete. SCDs for DVT prophylaxis. 10/01 HRCT CHEST - (Edited) 1) Extensive calcified bilateral hilar and mediastinal lymphadenopathy 2) Pprominent pulmonary arteries, possibly related to pulmonary hypertension 3) Mild new groundglass opacity suggestive of mild pneumonitis, in the RUL. Patchy density C/W atelectasis or pna in the inferior aspect RLL and RML, and lingula. 4) Bilateral pulmonary nodules are smaller favoring a "Benign etiology" 5) Kidney cyst - possibly benign. Plan 1) Pt is on Rocephin that was added earlier will continue 2) Will change Doxy to IV to cover for atypicals she is allergic to Azithromicyn. 3) Continue Albuterol as tolerated and steroids. 4) IVF for fluid resucitation PT CODE STATUS IS DNR/DNI ABG WAS DONE: pH- 7.52, PaO2 - 62, PCO2 - 42, HCO3- 34.3 this is on 4.5L/Min Pt has significant hypoxemia with elevated A-a gradient. She stated she is a DNR/DNI She alkalosis which is metabolic with partial respiratory compensation - could be contraction alkalosis plan - CT did not show a pattern of CHF and pt is progressing to sepsis Will hydrate vigorously with LR Will add Diamox 10/02 A. Acute anemia with, dyspnea, tachypnea and tachycardia, on admission - S/P 2 Units of PRBC given on day # 1 of admission - Admission H.H - 6.7/22.8 (09/30) H.H today 9.7/32.6 (10/02) - Pt was given 2U of PRBC (09/30) - Hemoglobin went up excessively for the ammount of blood she received, pointing to hemo-concentration. 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 B. COPD AE- Dyspnea - SOB - pulmonary HTN, previous H.O Sarcoidosis, Bilateral pleural effussions ? of NEW PNA ? - HRCT CHEST - (10/02 - Edited) "................................... 1) Extensive calcified bilateral hilar and mediastinal lymphadenopathy 2) Large right and moderate Left pleural effussions 3) Prominent pulmonary arteries, possibly related to pulmonary hypertension 4) Mild new groundglass opacity suggestive of mild pneumonitis, in the RUL. Patchy density C/W atelectasis or pna in the inferior aspect RLL and RML, and lingula. 5) Bilateral pulmonary nodules are smaller favoring a "Benign etiology" ( compared with previous exam) 6) Kidney cyst - possibly benign. ...................................." - BNP went up after transfussion. - Rocephin and Doxy (DAY # 2) - Procalcitonin - LOW (6/3) - ABG (6/3) suggests hypoxemia and metabolic alkalosis (Has metabolic alkalosis with partial respiratory compensation) - Diamox added (/3) - Pt urinary pH is actually a bit acidic. Pt was taking some Calcium carbonate - could have a component of milk-alkali superimposed. - May need U/S guided thoracenthesis - decubitus films ordered. Discussed this with pt and she would agree to U/S guided thoracenthesis. C. Paroxysmal atrial fibrillation with presently rate in the high 90's and low 100's. - She has A fib and is on ASA for prevention of CVA, which of course will keep her bleeding. 10/03 COPD with Pulmonary HTN, Sarcoid hx; B/L pleural effusions; acute anemia -intolerant of BiPAP - induces panic attack -PCO2 rising; WBC increasing despite treatment -JESUS with creatinine up to 2.4 (baseline in mid 1's); still making urine - Vazquez placed for comfort and significant dyspnea with activity -Comfort care per patient and family wishes - DC abx, DC PO meds, cont IV morphine, ativan for air hunger and anxiety -Family declines thoracentesis -Per dtr, it is more important to keep symptoms at bay, even if it means she sleeps consistently -Donaldo Yu RN will be here at 0945. 10/04 Resting in bed. Arouses to verbal stimuli, but not able to engage in conversation. SOA continues-does require frequent MS/Ativan and neb treatments to help. Oral drive decreased-will take in small bites at times. Continue with comfort measures-MS/Ativan to help air hunger. Neb treatment to help decrease pulmonary reactivity. Continue with supplemental O2. CM working on discharge care arrangements - anticipate initiation of [facility] at discharge.
[2016-10-05] MEDS: MORPHINE SULFATE 2 MG SYRINGE IVP PRN ×3 (03:49→14:03)
[2016-10-05] MEDS: IPRATROPIUM/ALBUTEROL 2.5mg-0.5mg/3ml NEB AEROSOL SCH ×2 (08:11→12:17)
[2016-10-05] MEDS: PANTOPRAZOLE 40 MG INJECTION IVP SCH (08:50)
[2016-10-05] MEDS: LR 1,000 ML IV SCH (09:01)
--- NOTE | 2016-10-05 12:33 | Progress Note ---
Subjective: F/U: Acute on chronic respiratory failure Resting comfortably in bed. Family members at bedside. Not interactive today. Pain and respiratory distress controlled well with medications; family feels she has been kept comfortable. Arrangements for care at [facility] with [facility] made. Objective Vital signs: Temp Pulse Resp BP Pulse Ox 95.9 F L 104 H 28 H 145/71 H 96 10/05/16 07:27 10/05/16 07:27 10/05/16 12:17 10/05/16 07:27 10/05/16 12:17 Weight: 69.9 kg - Constitutional Present: mild distress, well nourished, well developed, somnolent, other ( Resting comfortably ). Absent: agitated - Routine HEENT Exam Head: Present: normocephalic, atraumatic ENT: Present: mucous membranes dry - Routine Respiratory Exam Present: accessory muscle use (Mild use ), respiratory distress (Very mild ), wheezes (Faint), distant breath sounds, diminished air movement (Decreased air movement.) - Routine Cardiovascular Exam Present: irregular rhythm, irregularly irregular - Routine Abdominal Exam Present: soft, non distended, non tender. Absent: normoactive bowel sounds - Routine Extremities Exam Present: edema (Trace). Absent: cyanosis, clubbing - Routine Skin Exam Present: intact, warm - Routine Neurological Exam Absent: alert (Somnolent ) - Routine Psychiatric Exam Present: unable to assess (somnolent ) Results - Labs CBC & Chem 7: 10/02/16 04:15 10/02/16 04:15 - ABG Interpretation ABG results: 10/01/16 10/02/16 10/02/16 16:50 17:11 18:30 ABG pH 7.520 H 7.350 7.372 ABG pCO2 42 60 H* 48 H ABG pO2 62 L 92 86 ABG HCO3 34 H 33 H 28 H ABG Total CO2 35.6 H 34.9 H 29 H ABG O2 Saturation 94.0 L 97.0 96.0 ABG Base Excess 10.4 H 5.8 H 2.0 Assessment and Plan (1) Acute on chronic respiratory failure Current visit: Yes Status: Acute (2) Acute exacerbation of chronic obstructive airways disease Current visit: Yes Status: Acute (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 Current visit: Yes Status: Acute (8) Pleural effusion Current visit: Yes Status: Acute Assessment and Plan: Will discharge to [facility] for hospice care with [facility]. Condition is terminal, life expectancy days to weeks. Roxanol and lorazepam as needed for comfort measure. Continue neb treatments and supplemental O2. Oral intake as pt can tolerate. [facility] to provide hospice care. May f/u with Dr Snow in 1 week as needed. Emotional support given to family members. See orders for details. Case discussed with CM and family. Time spent with pt care and discharge greater than 35 minutes. Sepsis Assessment - Evaluation Sepsis screening result: Sepsis Risk - Focused Exam Vital Signs Temp Pulse Resp BP Pulse Ox 10/05/16 12:17 28 H 96 10/05/16 08:12 24 87 L 10/05/16 07:27 95.9 F L 104 H 22 145/71 H 94 Respiratory exam: Present: rhonchi Cardiovascular exam: Present: RRR, S1, S2 Capillary refill: > 3 Seconds Hospital Course Summary Disclaimer: The visit summary below is not to be considered part of the above Progress Note. Hospital Course: 09/30 Admission Assessment 1. Acute hypoxemic respiratory failure in the setting of chronic pulmonary Sarcoidosis and COPD with presumptive acute exacerbation-present on admit 2. Chronic kidney disease stage IV-at apparent baseline 3. Paroxysmal atrial fibrillation with presently controlled ventricular rate 4. 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 Will wean oxygen as tolerated. Plan to continue systemic IV corticosteroids, and nebulized bronchodilator therapy. I will initiate oral doxycycline for antibiotic coverage. Plan to continue home diuretics, and will need to replace potassium. Follow up labs will be ordered for noon today. Plan to continue other home medications, after reconciliation is complete. SCDs for DVT prophylaxis. 10/01 HRCT CHEST - (Edited) 1) Extensive calcified bilateral hilar and mediastinal lymphadenopathy 2) Pprominent pulmonary arteries, possibly related to pulmonary hypertension 3) Mild new groundglass opacity suggestive of mild pneumonitis, in the RUL. Patchy density C/W atelectasis or pna in the inferior aspect RLL and RML, and lingula. 4) Bilateral pulmonary nodules are smaller favoring a "Benign etiology" 5) Kidney cyst - possibly benign. Plan 1) Pt is on Rocephin that was added earlier will continue 2) Will change Doxy to IV to cover for atypicals she is allergic to Azithromicyn. 3) Continue Albuterol as tolerated and steroids. 4) IVF for fluid resucitation PT CODE STATUS IS DNR/DNI ABG WAS DONE: pH- 7.52, PaO2 - 62, PCO2 - 42, HCO3- 34.3 this is on 4.5L/Min Pt has significant hypoxemia with elevated A-a gradient. She stated she is a DNR/DNI She alkalosis which is metabolic with partial respiratory compensation - could be contraction alkalosis plan - CT did not show a pattern of CHF and pt is progressing to sepsis Will hydrate vigorously with LR Will add Diamox 10/02 A. Acute anemia with, dyspnea, tachypnea and tachycardia, on admission - S/P 2 Units of PRBC given on day # 1 of admission - Admission H.H - 6.7/22.8 (09/30) H.H today 9.7/32.6 (10/02) - Pt was given 2U of PRBC (09/30) - Hemoglobin went up excessively for the ammount of blood she received, pointing to hemo-concentration. 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 B. COPD AE- Dyspnea - SOB - pulmonary HTN, previous H.O Sarcoidosis, Bilateral pleural effussions ? of NEW PNA ? - HRCT CHEST - (10/02 - Edited) "................................... 1) Extensive calcified bilateral hilar and mediastinal lymphadenopathy 2) Large right and moderate Left pleural effussions 3) Prominent pulmonary arteries, possibly related to pulmonary hypertension 4) Mild new groundglass opacity suggestive of mild pneumonitis, in the RUL. Patchy density C/W atelectasis or pna in the inferior aspect RLL and RML, and lingula. 5) Bilateral pulmonary nodules are smaller favoring a "Benign etiology" ( compared with previous exam) 6) Kidney cyst - possibly benign. ...................................." - BNP went up after transfussion. - Rocephin and Doxy (DAY # 2) - Procalcitonin - LOW (/3) - ABG (/3) suggests hypoxemia and metabolic alkalosis (Has metabolic alkalosis with partial respiratory compensation) - Diamox added (10/01) - Pt urinary pH is actually a bit acidic. Pt was taking some Calcium carbonate - could have a component of milk-alkali superimposed. - May need U/S guided thoracenthesis - decubitus films ordered. Discussed this with pt and she would agree to U/S guided thoracenthesis. C. Paroxysmal atrial fibrillation with presently rate in the high 90's and low 100's. - She has A fib and is on ASA for prevention of CVA, which of course will keep her bleeding. 10/03 COPD with Pulmonary HTN, Sarcoid hx; B/L pleural effusions; acute anemia -intolerant of BiPAP - induces panic attack -PCO2 rising; WBC increasing despite treatment -JESUS with creatinine up to 2.4 (baseline in mid 1's); still making urine - Vazquez placed for comfort and significant dyspnea with activity -Comfort care per patient and family wishes - DC abx, DC PO meds, cont IV morphine, ativan for air hunger and anxiety -Family declines thoracentesis -Per dtr, it is more important to keep symptoms at bay, even if it means she sleeps consistently -Donaldo [facility] RN will be here at 0945. 10/04 Resting in bed. Arouses to verbal stimuli, but not able to engage in conversation. SOA continues-does require frequent MS/Ativan and neb treatments to help. Oral drive decreased-will take in small bites at times. Continue with comfort measures-MS/Ativan to help air hunger. Neb treatment to help decrease pulmonary reactivity. Continue with supplemental O2. CM working on discharge care arrangements - anticipate initiation of [facility] at discharge. 6/7 Resting comfortably in bed. Family members at bedside. Not interactive today. Pain and respiratory distress controlled well with medications; family feels she has been kept comfortable. Arrangements for care at [facility] with [facility] made. Will discharge to [facility] for hospice care with [facility]. Condition is terminal, life expectancy days to weeks. Roxanol and lorazepam as needed for comfort measure. Continue neb treatments and supplemental O2. Oral intake as pt can tolerate. [facility] to provide hospice care. May f/u with Dr Snow in 1 week as needed. Emotional support given to family members. See orders for details. Case discussed with CM and family. Time spent with pt care and discharge greater than 35 minutes.
--- NOTE | 2016-10-05 12:52 | Extended Care Facility Orders ---
Admission Orders Admit to:: [facility] Allergies/Adverse Reactions: Allergies azithromycin Allergy (Unknown, Verified 09/30/16 04:18) Rash ciprofloxacin Allergy (Unknown, Verified 10/04/16 18:09) Rash oxycodone Allergy (Unknown, Verified 10/04/16 18:09) Admitting Diagnosis: Dyspnea Admitting Physician: Carlos Chavez MD Attending Physician: Dr Snow Code Status: Do Not Resuscitate Anticiapted Length of Stay: 30 days or less Rehab Potential: poor Rehab Prognosis: poor Diet: As pt can tolerated. May use Facility Protocol or Standing Orders: Yes May have flu vaccine: Yes Detention Certification: I certify that SNF services are required to be given on an Inpatient basis because of the patients need for nursing home care on a continuing basis for the condition(s) for which he/she received inpatient hospital services prior to his/her transfer to the SNF. SNF inpatient care is necessary for the following reasons Indication for Detention: Not Applicable - Additional Information Resident is Aware of Diagnosis: Yes Additional Orders: [facility] to initiate care on pt's arrival. May f/ u with Dr Snow in 1 week as needed.
--- NOTE | 2016-10-05 13:00 | Discharge Summary ---
Discharge Information Date of admission: 09/30/16 03:31 Anticipated date of discharge: 10/05/16 Attending Physician: Carlos Chavez MD Primary care physician: Rahul Snow MD Consults: 10/02/16 19:57 Hospice Consult [CONS] Routine Comment: Please call hospice agency of choice in the AM 10/03/16 10:42 Doctor [Physician Consult] [CONS] Routine Consulting Provider: Lei Elliott Reason For Exam: CONTINUITY OF CARE Ordering Provider has Notified Supply Clerk: Yes 10/04/16 14:56 Doctor [Physician Consult] [CONS] Routine Consulting Provider: [facility] Reason For Exam: CONTINUED CARE Ordering Provider has Notified Supply Clerk: Yes - Discharge Diagnosis (1) Acute on chronic respiratory failure Status: Acute (2) Acute exacerbation of chronic obstructive airways disease Status: Acute (3) Sarcoidosis of lung Status: Chronic (4) Pulmonary hypertension Status: Chronic (5) Atrial fibrillation Status: Chronic (6) Stage 4 chronic kidney disease Status: Chronic (7) Anemia due to stage 4 chronic kidney disease Problem Details: 6/2: 2 units pRBC transfused. Status: Acute (8) Pleural effusion Status: Acute - Procedures Procedures: Procedures 6/2: Transfusion 2 units pRBC - Laboratory Labs: 10/02/16 04:15 10/02/16 04:15 - Microbiology Microbiology 10/01/16 13:32 Peripheral/Iv Start Blood Culture - Preliminary No Growth After 3 Days 10/01/16 13:27 Peripheral/Iv Start Blood Culture - Preliminary No Growth After 3 Days History of Present Illness HPI: Chief complaint: Dyspnea HPI: Patient is an 86-year-old female who presents to the ER this evening with acute onset of dyspnea and hypoxemia. She was found by EMS responders to be acutely tachypneic, although her oxygen saturation upon EMS arrival at the house was reported to be 100%. She was noted to be breathing 40 times per minute. She was placed on a non-rebreather mask and brought to the ER. She is presently now down to 5 L of nasal cannula oxygen. She has a known history of sarcoidosis, and review of records reveals she was recently discharged from this facility in June of this year with an acute exacerbation of her pulmonary sarcoidosis and COPD. She has been given a breathing treatment tonight, and some steroids. A BNP was 3000, so she was also given Lasix in the ER. She is chronically on oral Lasix at home. A d-dimer was negative. Potassium was slightly depressed as well. It appears that she is chronically on nocturnal oxygen. Shes now being placed under full admission status this morning for treatment of her acute exacerbation of COPD and pulmonary sarcoidosis. For complete details of the H&P refer to that document. Hospital Course Hospital course: 09/30 Admission Assessment 1. Acute hypoxemic respiratory failure in the setting of chronic pulmonary Sarcoidosis and COPD with presumptive acute exacerbation-present on admit 2. Chronic kidney disease stage IV-at apparent baseline 3. Paroxysmal atrial fibrillation with presently controlled ventricular rate 4. 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 Will wean oxygen as tolerated. Plan to continue systemic IV corticosteroids, and nebulized bronchodilator therapy. I will initiate oral doxycycline for antibiotic coverage. Plan to continue home diuretics, and will need to replace potassium. Follow up labs will be ordered for noon today. Plan to continue other home medications, after reconciliation is complete. SCDs for DVT prophylaxis. 10/01 HRCT CHEST - (Edited) 1) Extensive calcified bilateral hilar and mediastinal lymphadenopathy 2) Pprominent pulmonary arteries, possibly related to pulmonary hypertension 3) Mild new groundglass opacity suggestive of mild pneumonitis, in the RUL. Patchy density C/W atelectasis or pna in the inferior aspect RLL and RML, and lingula. 4) Bilateral pulmonary nodules are smaller favoring a "Benign etiology" 5) Kidney cyst - possibly benign. Plan 1) Pt is on Rocephin that was added earlier will continue 2) Will change Doxy to IV to cover for atypicals she is allergic to Azithromicyn. 3) Continue Albuterol as tolerated and steroids. 4) IVF for fluid resucitation PT CODE STATUS IS DNR/DNI ABG WAS DONE: pH- 7.52, PaO2 - 62, PCO2 - 42, HCO3- 34.3 this is on 4.5L/Min Pt has significant hypoxemia with elevated A-a gradient. She stated she is a DNR/DNI She alkalosis which is metabolic with partial respiratory compensation - could be contraction alkalosis plan - CT did not show a pattern of CHF and pt is progressing to sepsis Will hydrate vigorously with LR Will add Diamox 10/02 A. Acute anemia with, dyspnea, tachypnea and tachycardia, on admission - S/P 2 Units of PRBC given on day # 1 of admission - Admission H.H - 6.7/22.8 (6/2) H.H today 9.7/32.6 (/4) - Pt was given 2U of PRBC (/2) - Hemoglobin went up excessively for the ammount of blood she received, pointing to hemo-concentration. 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 B. COPD AE- Dyspnea - SOB - pulmonary HTN, previous H.O Sarcoidosis, Bilateral pleural effussions ? of NEW PNA ? - HRCT CHEST - (6/ - Edited) "................................... 1) Extensive calcified bilateral hilar and mediastinal lymphadenopathy 2) Large right and moderate Left pleural effussions 3) Prominent pulmonary arteries, possibly related to pulmonary hypertension 4) Mild new groundglass opacity suggestive of mild pneumonitis, in the RUL. Patchy density C/W atelectasis or pna in the inferior aspect RLL and RML, and lingula. 5) Bilateral pulmonary nodules are smaller favoring a "Benign etiology" ( compared with previous exam) 6) Kidney cyst - possibly benign. ...................................." - BNP went up after transfussion. - Rocephin and Doxy (DAY # 2) - Procalcitonin - LOW (6/3) - ABG (6/3) suggests hypoxemia and metabolic alkalosis (Has metabolic alkalosis with partial respiratory compensation) - Diamox added (6/3) - Pt urinary pH is actually a bit acidic. Pt was taking some Calcium carbonate - could have a component of milk-alkali superimposed. - May need U/S guided thoracenthesis - decubitus films ordered. Discussed this with pt and she would agree to U/S guided thoracenthesis. C. Paroxysmal atrial fibrillation with presently rate in the high 90's and low 100's. - She has A fib and is on ASA for prevention of CVA, which of course will keep her bleeding. 6/5 COPD with Pulmonary HTN, Sarcoid hx; B/L pleural effusions; acute anemia -intolerant of BiPAP - induces panic attack -PCO2 rising; WBC increasing despite treatment -JESUS with creatinine up to 2.4 (baseline in mid 1's); still making urine - Vazquez placed for comfort and significant dyspnea with activity -Comfort care per patient and family wishes - DC abx, DC PO meds, cont IV morphine, ativan for air hunger and anxiety -Family declines thoracentesis -Per dtr, it is more important to keep symptoms at bay, even if it means she sleeps consistently -Donaldo Yu RN will be here at 0945. 10/04 Resting in bed. Arouses to verbal stimuli, but not able to engage in conversation. SOA continues-does require frequent MS/Ativan and neb treatments to help. Oral drive decreased-will take in small bites at times. Continue with comfort measures-MS/Ativan to help air hunger. Neb treatment to help decrease pulmonary reactivity. Continue with supplemental O2. CM working on discharge care arrangements - anticipate initiation of [facility] at discharge. 10/05 Resting comfortably in bed. Family members at bedside. Not interactive today. Pain and respiratory distress controlled well with medications; family feels she has been kept comfortable. Arrangements for care at [place] with [facility] made. Will discharge to [place] for hospice care with [facility]. Condition is terminal, life expectancy days to weeks. Roxanol and lorazepam as needed for comfort measure. Continue neb treatments and supplemental O2. Oral intake as pt can tolerate. [facility] to provide hospice care. May f/u with Dr Snow in 1 week as needed. Emotional support given to family members. See orders for details. Case discussed with CM and family. Time spent with pt care and discharge greater than 35 minutes. Above narrative is a brief summary of patient's hospitalization. For complete details of the hospital course, refer to the medical record. DVT Prophylaxis: SCD's GI Prophylaxis: Protonix Discharge Plan - Med Rec/Dispo Referrals/Follow Up: Rahul Snow MD [Family Provider] - [facility] [[facility]] - [facility] Instructions: COPD (Chronic Obstructive Pulmonary Disease) (GEN) Prescriptions: New Albuterol/Ipratropium [Duoneb] 3 ml AEROSOL Q2H PRN ampul PRN Reason: Agitation/Air Hunger/Pain LORazepam [Lorazepam] 1 tab PO/SL Q4HPRN PRN #20 tab PRN Reason: Anxiety/Air Hunger/Agitation Morphine Sulfate Oral Liq [Roxanol Oral Liq] 0.25 mg PO/SL Q1HR PRN #20 solution PRN Reason: Agitation/Air Hunger/Pain Continue Acetaminophen [Acetaminophen Extra Strength] 1,000 mg PO Q8H PRN #0 PRN Reason: PAIN Ipratropium/Albuterol Sulfate [Iprat-Albut 0.5-3(2.5) mg/3 ml] 3 ml AEROSOL RTQID 30 Days Discontinued Fish Oil/Dha/Epa [Fish Oil 1,200 mg Fish Oil] 1,200 mg PO DAILY #0 Ascorbic Acid [Vitamin C] 1,000 mg PO DAILY #0 Aspirin [Aspirin EC] 81 mg PO DAILY #0 Multivitamin [Multi-Day Vitamins] 1 tab PO DAILY #0 Albuterol Sulfate 1 vial INH QID PRN #0 PRN Reason: SHORTNESS OF AIR Docusate Sodium 1 cap PO DAILY #0 Sulfamethoxazole/Trimethoprim [Sulfamethoxazole-Tmp Ss Tablet] 1 tab PO BID 5 Days Ferrous Sulfate 324 mg PO BIDWM 30 Days PredniSONE [Deltasone] 40 mg PO WB 14 Days Potassium Chloride 20 meq PO DAILY #0 Fluticasone/Salmeterol [Advair 500-50 Diskus] 1 puff ORAL INH RTBID #0 Furosemide 40 mg PO DAILY #0 Calcium Carbonate [Calcium] 500 mg PO QD #0 dilTIAZem HCl [Diltiazem 12Hr ER] 90 mg PO BID 30 Days - Disposition 04 To [facility] Home[facility]Facility
== END 2016-10-05 14:20 | disposition hospice, home (50) | DRG 189 ==
LOC: ED 23:46 → MED 09-30 03:31
PROVIDERS: ADMIT Hospitalist; ATTEND Hospitalist